=== PATIENT | female | born 1995 ===

== ENCOUNTER 2022-04-20 23:42 | Inpatient (IN) | payer SELFPAY ==
[2022-04-21] MEDS ORDERED: Bisacodyl 10 MG Supp RECTAL PRN (01:28)
[2022-04-21] MEDS ORDERED: Witch Hazel Medicated Pads 40/Jar TOP PRN (01:28)
[2022-04-21] MEDS ORDERED: Docusate Sodium 100 MG Cap PO PRN (01:28)
[2022-04-21] MEDS ORDERED: Lanolin 100% Cream 7 GM Tube TOP PRN (01:28)
[2022-04-21] MEDS ORDERED: Acetaminophen 500 MG Tab PO PRN (01:28)
[2022-04-21] MEDS ORDERED: Benzocaine/Menthol 20%-0.5% Spray 78 GM Cannister TOP PRN (01:28)
[2022-04-21] MEDS ORDERED: Ibuprofen 400 MG Tab PO PRN (01:28)
[2022-04-21] MEDS ORDERED: Sodium Chloride 0.9% 10 ML Syringe FLUSH PRN (02:09)
[2022-04-21] MEDS ORDERED: Water For Irrigation,Sterile 1,000 ML Container IRR PRN (02:09)
[2022-04-21] MEDS ORDERED: Sodium Chloride 0.9% 2.5 ML Syringe FLUSH PRN (02:09)
[2022-04-21] MEDS ORDERED: Lidocaine 1% 50 ML MDV INJECT PRN (02:09)
[2022-04-21] MEDS ORDERED: Butorphanol 1 MG/ML SDV IVPUSH PRN (02:09)
[2022-04-21] MEDS ORDERED: Sodium Chloride 0.9% 20 ML SDV IV PRN (02:09)
[2022-04-21] MEDS ORDERED: Carboprost Tromethamine 250 MCG/1 ML Amp IM PRN (02:09)
[2022-04-21] MEDS ORDERED: Methylergonovine 0.2 MG/1 ML Amp IM PRN (02:09)
[2022-04-21] MEDS ORDERED: Misoprostol 200 MCG Tab PO PRN (02:09)
[2022-04-21] MEDS ORDERED: Tranexamic Acid 1,000 MG in Sodium Chloride 0.9% 100 ML IV PRN (02:09)
[2022-04-21] MEDS ORDERED: Lactated Ringers 1,000 ML IV SCH (02:15)
[2022-04-21] MEDS ORDERED: Oxytocin/0.9 % Sodium Chloride 30 UNIT/500 ML BAG IV SCH (02:15)
[2022-04-21] MEDS ORDERED: Oxytocin 10 Units/1 ML SDV IM ONE (03:31)
[2022-04-21] MEDS: Ibuprofen 800 MG Tab PO PRN ×2 (03:36→15:44)
[2022-04-21] MEDS: Acetaminophen 500 MG Tab PO PRN ×2 (07:43→15:44)
[2022-04-22] MEDS: Acetaminophen 500 MG Tab PO PRN ×2 (02:17→08:39)
[2022-04-22] MEDS: Ibuprofen 800 MG Tab PO PRN ×2 (02:19→08:41)
== END 2022-04-22 11:18 | disposition home or self-care (01) | DRG 807 ==
LOC: MW.OBCHECK 23:42 → MW.OB 23:43 → MW.OBCHECK 23:59 → MW.OB 23:59 → OBSVTOIN 04-21 00:44 → MW.OB 04-21 04:15
PROVIDERS: ADMIT Obstetrics & Gynecology; ATTEND Obstetrics & Gynecology Obstetrics
PROC: 10E0XZZ Delivery of Products of Conception, External Approach (ICD-10-PCS; principal; 2022-04-21)
DX: O77.0 Labor and delivery complicated by meconium in amniotic fluid (principal); Z37.0 Single live birth; Z3A.39 39 weeks gestation of pregnancy; Z3A.38 38 weeks gestation of pregnancy
CPT/HCPCS: 36415; 59025; 59409; 85014; 85018; 85027; 86592; 86850; 86900; 86901; A9270-GY; J2590

== ENCOUNTER 2023-01-08 13:31 | Emergency (ER) | payer OTHER ==
[2023-01-08] MEDS ORDERED: Sodium Chloride 0.9% 10 ML Syringe FLUSH PRN (13:51)
[2023-01-08] MEDS ORDERED: Sodium Chloride 0.9% 2.5 ML Syringe FLUSH PRN (13:51)
[2023-01-08] MEDS ORDERED: Lactated Ringers 1,000 ML IV ONE (15:52)
[2023-01-08] MEDS ORDERED: Ondansetron 4 MG/2 ML SDV IVPUSH ONE (15:53)
[2023-01-08] MEDS ORDERED: Iopamidol 755 Mg/ML 100 ML Bottle IVPUSH ONE (18:55)
== END 2023-01-08 18:24 | disposition home or self-care (01) ==
LOC: MW.ED 13:31
DX: S16.1XXA Strain of muscle, fascia and tendon at neck level, initial encounter (principal); S50.01XA Contusion of right elbow, initial encounter; S30.0XXA Contusion of lower back and pelvis, initial encounter; S80.812A Abrasion, left lower leg, initial encounter; S80.811A Abrasion, right lower leg, initial encounter; Z79.899 Other long term (current) drug therapy; V49.40XA Driver injured in collision with unspecified motor vehicles in traffic accident, initial encounter; Y92.410 Unspecified street and highway as the place of occurrence of the external cause
CPT/HCPCS: 70450; 71260; 72125; 72128; 72131; 73060; 73080; 73562; 74177; 96360; 99285; G0390; J3490; J7120; Q9967; 99291